=== PATIENT | female | born 1950 | race African-American/Black ===

== ENCOUNTER 2016-09-30 01:20 | Inpatient (IN) ==
[2016-09-30] MEDS ORDERED: ENOXAPARIN 100 MG/ML SYRINGE SUBCUT STA (02:03)
--- NOTE | 2016-09-30 02:12 | Emergency Department Note ---
Ye Franco Emily, am scribing for, and in the presence of, Rick William MD 02: 09. Stewart Franco Robert M, MD, personally performed the services described in this documentation, ascribed by Christie Belcher in my presence, and it is both accurate and complete . Arrival - Arrival Chief Complaint: Chest Pain Stated Complaint: chest pain ED Nursing Triage Note: Patient to room via ems. Patient was transfered from [facility] due to chest pain that has been going on for 1 week. Mode of Arrival: Stretcher Limitations: No Limitations Source: Patient Time Seen by Provider: 09/30/16 01:58 - History of Present Illness HPI Narrative: Pt is a 66 y/o female who was transferred from [facility] to ED for further evaluation for chest pain that has been ongoing for a week. Pt failed stress test last week with Dr. Elmore and has another appt next month, but instructed to go to ED if chest pain started. Pt denies any other sxs or radiating pain from chest. PMHx of 1999 heart attack with stents. Onset (ago): week(s) Consistency: constant Severity: mild Severity scale (1-10): 3 Quality: aching Allergies/Adverse Reactions: Allergies Allergy/AdvReac Type Severity Reaction Status Date / Time No Known Allergies Allergy Unverified 09/30/16 01:34 Review of System - Review of System 12 point system: reviewed and no additional remarkable complaints except as stated - Review of System Constitutional: Absent: diaphoresis, fever Respiratory: Absent: respiratory distress Cardiovascular: Present: chest pain (mid sternum; non radiating). Absent: palpitations, dyspnea on exertion Gastrointestinal: Absent: nausea, vomiting Musculoskeletal: Absent: arm pain, neck pain Skin: Absent: rash Neurological: Absent: headache, numbness, paresthesias Medical,Surgical,& Family Hx - Medical History Cardio: History of: Hypertension Endocrine: History of: Diabetes Mellitus (NIDDM), Dyslipidemia - Social History Smoking Status: Never smoker Frequency of Alcohol Use: None Type of Drug Use: None Exam Vital Signs: Vital Signs Temperature 98.4 F 09/30/16 01:45 Pulse Rate 60 09/30/16 01:45 Respiratory Rate 20 09/30/16 01:45 Blood Pressure 187/83 09/30/16 01:45 O2 Sat by Pulse Oximetry 99 09/30/16 01:42 - General General appearance: alert, in no apparent distress - Head Head exam: Present: atraumatic, normocephalic - Eye Eye exam: Present: PERRL, EOMI - ENT ENT exam: Present: mucous membranes moist. Absent: mucous membranes dry - Neck Neck exam: Present: full ROM. Absent: tenderness - Chest Chest inspection: Present: symmetric chest wall rise. Absent: tenderness - Respiratory Respiratory exam: Present: normal lung sounds bilaterally. Absent: respiratory distress - Cardiovascular Cardiovascular exam: Present: regular rate, normal rhythm, normal heart sounds - Extremities Exam Extremities exam: Present: full ROM. Absent: tenderness, pedal edema - Neurological Exam Neurological exam: Present: alert, oriented X3, CN II-XII intact. Absent: motor sensory deficit - Psychiatric Psychiatric exam: Present: normal affect, normal mood - Skin Skin exam: Present: warm, dry Course - Consultations Consultation #1: Dr. Corado was consulted. He will admit the patient. Time: 03:22 Results - Labs Lab Results: I have reviewed the patients labs Labs: Total Creatine Kinase 135 U/L (26-192) 09/30/16 02:23 CK-MB (CK-2) 2.2 U/L (0.5-3.6) 09/30/16 02:23 Troponin I 0.019 NG/ML (0.00-0.045) 09/30/16 02:23 Disposition Clinical Impression: Chest pain Case discussed with: patient, patient's family Disposition: Still a Patient Condition: Stable Time of Disposition: 03:24
[2016-09-30] MEDS ORDERED: ENOXAPARIN 100 MG/ML SYRINGE SUBCUT ONE (02:21)
[2016-09-30 03:00] LABS: Troponin I Only 0.019 NG/ML (0.00-0.045)
[2016-09-30] MEDS ORDERED: ONDANSETRON 4 MG/2 ML VIAL IV PRN (03:24)
[2016-09-30] MEDS ORDERED: MAGNESIUM SULF RIDER 4 GM in PREMIX 1 EACH IV PRN (03:24)
[2016-09-30] MEDS ORDERED: diphenhydrAMINE CAP 25 MG CAPSULE PO PRN (03:24)
[2016-09-30] MEDS ORDERED: MAGNESIUM SULF RIDER 2 GM in PREMIX 1 EACH IV PRN (03:24)
[2016-09-30] MEDS ORDERED: ZALEPLON 5 MG CAPSULE PO PRN (03:24)
[2016-09-30] MEDS ORDERED: DOCUSATE SODIUM 100 MG CAPSULE PO PRN (03:24)
[2016-09-30] MEDS ORDERED: guaiFENesin/DM ER 600-30 MG TABLET PO PRN (03:24)
[2016-09-30] MEDS ORDERED: POTASSIUM CHLORIDE 20 MEQ TABLET PO PRN (03:24)
--- NOTE | 2016-09-30 03:30 | EKG Report ---
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
[2016-09-30 06:36] LABS: Troponin I Only < 0.015 NG/ML (0.00-0.045)
--- NOTE | 2016-09-30 08:02 | Cardiology History & Physical ---
Assessment and Plan (1) HTN (hypertension) Status: Acute Assessment and plan: 1. 66-year-old overweight remote smoker status post non-STEMI with occluded ramus branch ((could not be opened) with EF 35% that time, who is done well for many years but now is having recurrent chest pain over the last week with someone abnormal myocardial scan. She was scheduled for heart catheterization next month, but came in due to recurrent chest pain, anxious about having a heart problem. 2. Rule out for myocardial infarction by cardiac markers 3. Significant T-wave inversions on EKG, possibly LVO versus ischemia 4. Plan for heart catheterization tomorrow 5. Continue PPI; symptoms are not exertional and her worst episode occurred in bed in the low substernal area. This may be GERD, though she did have some dyspnea and a concerning history. Current Visit: Yes (2) GERD (gastroesophageal reflux disease) Status: Acute Current Visit: Yes (3) Chest pain Status: Acute Current Visit: Yes History of Present Illness Chief complaint: cp History of present illness: Ms. Quinonez is a 66 [address] Dr[address] Elmore status post non-STEMI in the year 1999 when she had a ramus occlusion the could not be opened. She apparently has done quite well for a long time. She had been having increasing episodes of chest pain over the last week. She had one last night while lying in bed anxious about her son. She cannot tell me how it felt prolonged lasted. She says 5-10 minutes is a good guess. She did have shortness of breath with it but is not had any this morning. She has not had fever nausea vomiting or diaphoresis. She does not describe any exertional discomfort. Home Medications Medication Instructions Recorded Confirmed Type Aspirin 325 mg PO DAILY 09/30/16 09/30/16 History Insulin NPH Hum/Reg Insulin Hm 30 unit SUBCUT BEDTIME 09/30/16 09/30/16 History [NovoLIN 70/30] Insulin NPH Hum/Reg Insulin Hm 60 unit SUBCUT AC BREAKFAST 09/30/16 09/30/16 History [NovoLIN 70/30] Lisinopril/Hydrochlorothiazide 1 each PO DAILY 09/30/16 09/30/16 History [Lisinopril-Hctz 20-25 mg Tab] Metoprolol Tartrate 50 mg PO BID W/MEALS 09/30/16 09/30/16 History Niacin 500 mg PO DAILY 09/30/16 09/30/16 History Nitroglycerin 0.4 mg SL DIRECTED 09/30/16 09/30/16 History Omeprazole 20 mg PO DAILY 09/30/16 09/30/16 History Simvastatin [Zocor] 40 mg PO BEDTIME 09/30/16 09/30/16 History metFORMIN [Glucophage] 850 mg PO BID W/MEALS 09/30/16 09/30/16 History Allergies Allergy/AdvReac Type Severity Reaction Status Date / Time No Known Allergies Allergy Unverified 09/30/16 01:34 Medical,Surgical,& Family Hx - Medical History Cardio: History of: Hypertension Endocrine: History of: Diabetes Mellitus (NIDDM), Dyslipidemia - Surgical History Cardiac Surgeries: Sugical HX of: Cardiac Catheterization Thoracic Surgeries: Patient denies;: Organ Transplant, Lobectomy Neurologic Surgeries: Patient denies: Neurologic Surgery Abdominal Surgeries: Patient denies: Abdominal Surgery Reproductive Surgeries: Patient denies;: Genitourinary Surgery, Gynecologic Surgery - Social History Smoking Status: Former smoker Frequency of Alcohol Use: None Type of Drug Use: None Cardiology Physical Exam - Constitutional Vitals: Vital Signs Temp Pulse Resp BP Pulse Ox 97.2 F L 71 12 169/84 98 09/30/16 04:30 09/30/16 04:30 09/30/16 06:07 09/30/16 04:30 09/30/16 04:30 Intake and Output 09/29/16 09/30/16 09/30/16 23:59 07:59 15:59 Output Total 0 / 0 Balance 0 / 0 Output: Urine 0 / 0 Other: # Bowel Movements 0 Weight 94.347 kg Patient Weight 09/30/16 23:59 Weight 94.347 kg General appearance: no acute distress, over weight - Head Head exam: Present: normal inspection, normocephalic, atraumatic - Neck Neck exam: Present: normal inspection - Respiratory Respiratory exam: Present: clear to auscultation bilaterally. Absent: stridor, wheezes - Cardiovascular Cardiovascular exam: Present: regular rate and rhythm. Absent: bradycardia, diastolic murmur, rubs - GI/Abdominal GI/Abdominal exam: Present: soft. Absent: tenderness - Extremities Exam Extremities exam: Absent: edema Result/EKG - Labs Labs: Laboratory Results - last 24 hr 09/30/16 04:43 Total Creatine Kinase 139 CK-MB (CK-2) 2.2 Troponin I < 0.015
[2016-09-30] MEDS ORDERED: NITROGLYCERIN SL 0.4 MG TABLET SL PRN (08:30)
[2016-09-30] MEDS ORDERED: PANTOPRAZOLE 40 MG TABLET PO SCH (09:00)
[2016-09-30] MEDS: LISINOPRIL/HCTZ 20-25 MG TABLET PO SCH (09:20)
[2016-09-30] MEDS: ASPIRIN 325 MG TABLET PO SCH (09:20)
[2016-09-30] MEDS: NIACIN 500 MG TABLET PO SCH (09:22)
--- NOTE | 2016-09-30 12:04 | EKG Report ---
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
[2016-09-30 12:09] LABS: Troponin I Only < 0.015 NG/ML (0.00-0.045)
[2016-09-30] MEDS: PANTOPRAZOLE 40 MG TABLET PO SCH (13:07)
[2016-09-30] MEDS: METOPROLOL TARTRATE 50 MG TABLET PO SCH (16:22)
[2016-09-30] MEDS: metFORMIN 850 MG TABLET PO SCH (17:08)
[2016-09-30] MEDS: INSULIN REGULAR 100 UNIT/ML SUBCUT SCH ×3 (17:32→20:23)
[2016-09-30] MEDS: SIMVASTATIN 40 MG TABLET PO SCH (20:19)
[2016-09-30] MEDS: INSULIN NPH/REGULAR 70/30 100 UNIT/ML SUBCUT SCH (20:20)
[2016-09-30 20:57] LABS: Troponin I Only < 0.015 NG/ML (0.00-0.045)
--- NOTE | 2016-10-01 06:06 | EKG Report ---
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
[2016-10-01] MEDS: INSULIN REGULAR 100 UNIT/ML SUBCUT SCH ×4 (08:35→22:21)
[2016-10-01] MEDS: INSULIN NPH/REGULAR 70/30 100 UNIT/ML SUBCUT SCH ×2 (08:35→22:30)
[2016-10-01] MEDS: metFORMIN 850 MG TABLET PO SCH ×2 (08:35→17:08)
[2016-10-01] MEDS: NIACIN 500 MG TABLET PO SCH (09:02)
[2016-10-01] MEDS: ASPIRIN 325 MG TABLET PO SCH (09:02)
[2016-10-01] MEDS: METOPROLOL TARTRATE 50 MG TABLET PO SCH ×2 (09:03→17:08)
[2016-10-01] MEDS: PANTOPRAZOLE 40 MG TABLET PO SCH (09:03)
[2016-10-01] MEDS: LISINOPRIL/HCTZ 20-25 MG TABLET PO SCH (09:06)
[2016-10-01] MEDS ORDERED: diphenhydrAMINE CAP 25 MG CAPSULE PO ONE (12:02)
[2016-10-01] MEDS ORDERED: DIAZEPAM 5 MG TABLET PO ONE (13:00)
--- NOTE | 2016-10-01 13:52 | History and Physical Update ---
Sedation H&P Update - History and Physical H&P was reviewed, the patient examined and there: are no changes in the patients condition since last H&P was completed. - Dictation Physical: refer to H&P completed by admitting physician - Physical Exam Mental Status: alert and oriented Heart: regular rate and rhythm Lung: clear to auscultation Abdomen: within normal limits Vitals: within normal limits - Sedation Plan for Sedation: minimal Patient Consent: Procedure disscussed with patient and patinet has consented., Risks and benefits were discussed with patient,including infection,, bleeding, injury to surrounding structures, seizure, temporary nerve, Patient understands and accepts potential risks/benefits and agrees to, proceed. ASA Class: II Airway Assessment: Class II: Soft palate, uvula, fauces visible
[2016-10-01] MEDS ORDERED: LIDOCAINE 1% 20 ML VIAL ONE (14:11)
[2016-10-01] MEDS ORDERED: MIDAZOLAM 2 MG/2 ML VIAL ONE (14:28)
[2016-10-01] MEDS ORDERED: MEPERIDINE 25 MG/1 ML VIAL ONE (14:28)
[2016-10-01] MEDS ORDERED: HEPARIN 5,000 UNIT/1 ML VIAL ONE (14:39)
[2016-10-01] MEDS ORDERED: SERTRALINE 25 MG TABLET PO ONE (15:09)
[2016-10-01] MEDS ORDERED: DEXTROSE 50% 25 GM/50 ML VIAL IV PRN (15:09)
[2016-10-01] MEDS ORDERED: ACETAMINOPHEN 325 MG TABLET PO PRN (15:09)
[2016-10-01] MEDS ORDERED: ACETAMINOPHEN/CODEINE 300-30 MG TABLET PO PRN (15:09)
[2016-10-01] MEDS ORDERED: GLUCAGON 1 MG VIAL IM PRN (15:09)
--- NOTE | 2016-10-01 15:13 | Cardiology Operative Report ---
Date of Procedure:: 10/01/16 Procedure: Date of procedure: 10/01/16 Procedure Preformed: Left heart cath Coronary angiography Left ventriculography Angiogram of the right femoral artery Angio-Seal of the right femoral artery-successful Surgeon / Physician: Iam Parker Metal Loader: Ankush Anthony Post-op diagnosis: same (Progressive chest pain suggestive of unstable angina. Patient had an abnormal stress test which suggested ischemia. She is referred for diagnostic catheterization possible intervention for unstable angina.) procedure: The patient was prepped and draped in usual manner. Entered the right femoral artery via the Seldinger technique. I used a sheath and then used a JL4 and engaged left coronary. Multiple views were taken. I then exchanged for a JR4. Multiple views of the right coronary were taken. I then exchanged for an angled pigtail. I crossed the valve. Left ventricular end-diastolic pressures measured. Left ventriculography was done. Left ventricle pullback was done. The catheters were then removed from the patient. Angiogram the right femoral artery was done. Angio-Seal was done. It was successful . please see the cath data sheets for the details of catheters used. Complications: None Hemodynamic data: LVEDP was 18 mmHg. Angiographic data: The left main coronary was large and had minimal luminal irregularities. The left anterior descending artery was large and had minimal luminal irregularities. The left circumflex system was moderate to large. Otherwise there are minimal luminal irregularities in the circumflex The ramus intermedius was moderate to large size. It was totally occluded proximally. There were left to left collaterals, ECHO grade II The right coronary artery was large in size, dominant vessel with the PDA. there were minimal luminal irregularities. PEREZ left ventriculography revealed normal global left ventricular systolic function. Overall ejection fraction was at least 55%. There was anterolateral hypokinesis. There is no significant mitral regurgitation. Angiogram of the right femoral artery revealed the puncture site to be in a large vessel, above the bifurcation. It was suitable for Angio-Seal. Impression: Occluded proximal ramus intermedius with left to left collaterals-- Mild disease in other vessels Normal global systolic function with LVEF 50-55%. There was some anterolateral hypokinesis. Mild elevation of LVEDP, 18 mmHg Angiogram of the right femoral artery Angio-Seal right femoral artery Plan/recommendations: The patient will have risk factors optimized. The patient will be on antiplatelet medications to include aspirin indefinitely . It is possible that some of her increased chest pain relates to the of two close family members. One was her mother. Family thinks she is stressed. Will give a trial of low-dose sertraline to see if it helps. She will also be on a proton pump inhibitor. She will be reassured regarding the results. Follow-up will be scheduled. Addenda: I saw the patient post-cath. the groin puncture site and distal pulse are stable. vital signs are stable and the patient will be observed closely overnight. Specimens: none sent Estimated blood loss: minimal Condition: stable Anesthesia: local, conscious sedation Disposition: floor Additional CC's: MD Grzegorz Major Anesthesia: local, minimal conscious sedation Surgeon / Physician: Iam Parker Metal Loader: other Estimated blood loss: minimal Specimens: none sent Condition: stable Disposition: floor
--- NOTE | 2016-10-01 15:18 | Operative Note ---
Date of procedure: 10/01/16 Procedure Preformed: Left heart cath Coronary angiography Left ventriculography Angiogram of the right femoral artery Angio-Seal of the right femoral artery-successful Surgeon / Physician: Iam Parker Hat Renovator: Ankush Anthony Post-op diagnosis: same (Progressive chest pain suggestive of unstable angina. Patient had an abnormal stress test which suggested ischemia. She is referred for diagnostic catheterization possible intervention for unstable angina.) Findings: Impression: Occluded proximal ramus intermedius with left to left collaterals-- Mild disease in other vessels Normal global systolic function with LVEF 50-55%. There was some anterolateral hypokinesis. Mild elevation of LVEDP, 18 mmHg Angiogram of the right femoral artery Angio-Seal right femoral artery Plan/recommendations: The patient will have risk factors optimized. The patient will be on antiplatelet medications to include aspirin indefinitely . It is possible that some of her increased chest pain relates to the of two close family members. One was her mother. Family thinks she is stressed. Will give a trial of low-dose sertraline to see if it helps. She will also be on a proton pump inhibitor. She will be reassured regarding the results. Follow-up will be scheduled. Addenda: I saw the patient post-cath. the groin puncture site and distal pulse are stable. vital signs are stable and the patient will be observed closely overnight. Specimens: none sent Estimated blood loss: minimal Condition: stable Anesthesia: local, conscious sedation Disposition: floor
[2016-10-01] MEDS ORDERED: SODIUM CHLORIDE 0.9% 1,000 ML IV SCH (15:30)
[2016-10-01] MEDS ORDERED: SERTRALINE 25 MG TABLET PO SCH (21:00)
[2016-10-01] MEDS: SIMVASTATIN 40 MG TABLET PO SCH (22:17)
[2016-10-02 06:24] LABS: Basophils # 0.1 10*3/uL (0.0-0.2); Basophils % 0.7 % (0.0-0.8); Eosinophils # 0.1 10*3/uL (0.0-0.87); Eosinophils % 1.2 % (0.00-10.9); Hematocrit 39.3 VOL% (35.7-47.0); Hemoglobin 12.8 GM/DL (12.0-16.0); Immature Granulocytes % 0.3 %; Immature Granulocytes Absolute 0.03 #; Lymphocytes # 2.3 10*3/uL (1.4-4.0); Lymphocytes % 21.7 % (21.3-54.2); Mean Corpuscular HGB Conc 32.6 GM/DL (32-36); Mean Corpuscular Hemoglobin 27 PG (27-34); Mean Corpuscular Volume 81.9 FL (87-102); Mean Platelet Volume 13.1 FL (9.6-12.0); Monocytes # 0.7 10*3/uL (0.11-0.8); Monocytes % 6.6 % (1.7-12.7); Neutrophils # 7.3 10*3/uL (1.4-7.4); Neutrophils % 69.5 % (38.7-73.9); Platelet Count 213 T/CUMM (130-400); White Blood Count 10.5 T/CUMM (4-12)
[2016-10-02 07:03] LABS: Calcium 8.9 MG/DL (8.5-10.1); Osmolality,Calculated 292.4 MOS/KG (273-304); Potassium 3.9 MMOL/L (3.5-5.1)
--- NOTE | 2016-10-02 08:14 | EKG Report ---
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
[2016-10-02] MEDS: METOPROLOL TARTRATE 50 MG TABLET PO SCH (08:53)
[2016-10-02] MEDS: ASPIRIN 325 MG TABLET PO SCH (08:53)
[2016-10-02] MEDS: NIACIN 500 MG TABLET PO SCH (08:53)
[2016-10-02] MEDS: metFORMIN 850 MG TABLET PO SCH (08:54)
[2016-10-02] MEDS: PANTOPRAZOLE 40 MG TABLET PO SCH (08:54)
[2016-10-02] MEDS: LISINOPRIL/HCTZ 20-25 MG TABLET PO SCH (08:54)
[2016-10-02] MEDS: INSULIN NPH/REGULAR 70/30 100 UNIT/ML SUBCUT SCH (08:55)
[2016-10-02] MEDS: INSULIN REGULAR 100 UNIT/ML SUBCUT SCH ×2 (08:56→12:24)
[2016-10-02 11:41] VITALS: BP 147/75
--- NOTE | 2016-10-02 13:08 | Discharge Summary ---
Hospital Course - Hospital Course Hospital Course: Ms. Quinonez, 66-year-old female patient with known history of coronary artery disease, routinely followed by Dr. Elmore. She has a history of Non-stemi in the year 1999 when she had a ramus occlusion the could not be opened. She presented to [facility] with progressive chest pain suggestive of unstable angina. Patient underwent heart catheterization with the following impressions noted: Impression: Occluded proximal ramus intermedius with left to left collaterals Mild disease in other vessels Normal global systolic function with LVEF 50-55%. There was some anterolateral hypokinesis. Mild elevation of LVEDP, 18 mmHg Angiogram of the right femoral artery Angio-Seal right femoral artery Plan/recommendations: We will optimize patient's risk factors. The patient will be on antiplatelet medications to include aspirin indefinitely . It is possible that some of her increased chest pain relates to the of two close family members. One was her mother. Family thinks she is stressed. Will give a trial of low-dose sertraline to see if it helps. She will also be on a proton pump inhibitor. Follow-up will be scheduled. Post catheterization patient was transferred back to the telemetry unit in stable condition. She did well post procedure and was without complications. Right groin is soft and without bleeding, hematoma and bruit. Distal pulses 2+ . Patient has ambulated around the room without any difficulty. Right groin has remained stable post ambulation. Right groin precautions have been reviewed with the patient. She denies chest pain, heaviness and tightness this morning labs are stable this morning creatinine of 0.8. Patient is currently in normal sinus rhythm without any overt arrhythmias or ectopy noted. Patient is now anxious for discharge. Having felt that she has met maximal medical therapy, she will be discharged home in stable condition. Patient has been instructed to resume his metformin tomorrow night. Patient has been given follow-up appointment with Dr. Elmore in 2 weeks with CBC, BMP, magnesium and EKG. Patient verbalizes understanding of discharge instructions and discharge medications. - Time spent with patient Time with patient DS: Greater than 30 minutes Diagnosis - Discharge Diagnosis (1) Chest pain Status: Resolved (2) GERD (gastroesophageal reflux disease) Status: Chronic (3) HTN (hypertension) Status: Chronic Specialty Discharge - Follow Up or Referrals Follow up with: Grzegorz Elmore MD [Physician] - (Follow-up appointment with Dr. Elmore in 1- 2 weeks with CBC, BMP, magnesium and EKG.) Discharge Plan - Discharge Data Disposition: Disch To Home/Self Care Condition at Discharge: Stable Discharge Diet: heart healthy Activity: no lifting (No heavy lifting or squatting 1 week), other (Post cath expectations) Hygiene: may shower, other (Post cath expectations) Weight Bearing at Discharge: other (Post cath expectations) Driving: other Contact your physician if you experience:: fever over 101 (Post cath expectations), Difficulty voiding, Redness or swelling, Nausea/Vomiting, Shortness of breath, Bleeding, pain uncontrolled by pain medications - Discharge Medications New Sertraline [Zoloft] 25 mg PO BEDTIME #30 tablet Pantoprazole Tab [Protonix Tab] 40 mg PO DAILY #30 tablet Continue Lisinopril/Hydrochlorothiazide [Lisinopril-Hctz 20-25 mg Tab] 1 each PO DAILY Niacin 500 mg PO DAILY Aspirin 325 mg PO DAILY metFORMIN [Glucophage] 850 mg PO BID W/MEALS Metoprolol Tartrate 50 mg PO BID W/MEALS Insulin NPH Hum/Reg Insulin Hm [NovoLIN 70/30] 30 unit SUBCUT BEDTIME Insulin NPH Hum/Reg Insulin Hm [NovoLIN 70/30] 60 unit SUBCUT AC BREAKFAST Simvastatin [Zocor] 40 mg PO BEDTIME Nitroglycerin 0.4 mg SL DIRECTED Discontinued Omeprazole 20 mg PO DAILY - Follow Up or Referral Follow Up: Grzegorz Elmore MD [Physician] - 2 Weeks (Follow-up appointment with Dr. Elmore in 2 weeks with CBC, BMP, magnesium and EKG.) - Forms/Instructions Exam - Constitutional Vitals: Period Temp Pulse Resp BP Sys/Metcalf Pulse Ox Last 24 Hr 97.7 F-98.6 F 62-80 18-20 127-148/61-75 94-995 General appearance: normal weight, no acute distress - Head Head exam: Present: normal inspection, normocephalic, atraumatic - Neck Neck exam: Present: normal inspection. Absent: lymphadenopathy, tenderness, thyromegaly - Respiratory Respiratory exam: Present: clear to auscultation bilaterally. Absent: accessory muscle use, chest wall tenderness, rales, rhonchi, stridor, wheezes - Cardiovascular Cardiovascular exam: Present: regular rate and rhythm. Absent: gallop, rubs - GI/Abdominal GI/Abdominal exam: Present: normal bowel sounds, soft. Absent: distended, firm , mass, tenderness - Extremities Exam Extremities exam: Present: normal inspection, other (Right groin is soft and without bleeding, hematoma and bruit. Distal pulses 2+.). Absent: normal capillary refill, calf tenderness, edema - Neurological Exam Neurological exam: Present: alert, oriented X3 - Psychiatric Psychiatric exam: Present: normal affect, normal mood - Skin Skin exam: Present: normal color, warm, dry Discharge Results Labs on day of discharge: Labs from last 24 hours 10/02/16 10/02/16 10/02/16 11:13 07:23 05:21 WBC RBC Hgb Hct MCV MCH MCHC RDW Plt Count MPV Neut % (Auto) Lymph % (Auto) [place] % (Auto) Eos % (Auto) Baso % (Auto) Neut # (Auto) Lymph # (Auto) [place] # (Auto) Eos # (Auto) Baso # (Auto) Immature Gran % Nucleated RBC % Immature Gran # Nucleated RBCs # Sodium 140 Potassium 3.9 Chloride 105 Carbon Dioxide 26 Anion Gap 12.9 BUN 14 Creatinine 0.80 GFR Calculation 105 BUN/Creatinine Ratio 17.00 Glucose 332 H POC Glucose 351 H 294 H Calculated Osmolality 292.4 Calcium 8.9 10/02/16 10/01/16 10/01/16 05:21 22:20 16:41 WBC 10.5 RBC 4.80 Hgb 12.8 Hct 39.3 MCV 81.9 L MCH 27 MCHC 32.6 RDW 14.0 Plt Count 213 MPV 13.1 H Neut % (Auto) 69.5 Lymph % (Auto) 21.7 [place] % (Auto) 6.6 Eos % (Auto) 1.2 Baso % (Auto) 0.7 Neut # (Auto) 7.3 Lymph # (Auto) 2.3 [place] # (Auto) 0.7 Eos # (Auto) 0.1 Baso # (Auto) 0.1 Immature Gran % 0.3 Nucleated RBC % 0.0 Immature Gran # 0.03 Nucleated RBCs # 0.00 Sodium Potassium Chloride Carbon Dioxide Anion Gap BUN Creatinine GFR Calculation BUN/Creatinine Ratio Glucose POC Glucose 344 H 192 H Calculated Osmolality Calcium - Imaging and Cardiology Cardiology Procedure: report reviewed by DS: Provider Date of admission: 09/30/16 03:24 Primary care physician: . No PCP Attending physician on admission: Grzegorz Elmore MD Discharging clinician: Radha Sharma NP Expected date of discharge: 10/02/16
== END 2016-10-02 16:14 | disposition home or self-care (01) | DRG 287 ==
LOC: EDUNIT# → EDBD → N.ED 01:20 → N.EDINP 03:24 → N.TELES 04:02
PROVIDERS: ADMIT Internal Medicine Interventional Cardiology; ATTEND Internal Medicine Interventional Cardiology
PROC: CLCCHCL (ICD-10-PCS; 2016-10-01 13:45)